=== PATIENT | female | born 1990 | race Caucasian/White ===

== ENCOUNTER 2020-09-01 10:27 | Outpatient (CLI) | payer OTHER, SELFPAY ==
--- NOTE | ~2020-09-01 | US_ITS ---
US abdomen complete DATE: 09/01/2020 11:05 INDICATION: Hepatitis C TECHNIQUE: Real-time imaging and Doppler analysis of the abdomen COMPARISON: None FINDINGS: No hepatic or pancreatic space-occupying mass lesion is evident. Normal hepatopedal portal venous flow direction. No gallstones, gallbladder wall thickening or abnormal pericholecystic fluid. Negative sonographic Mu rphy's sign. The common bile duct measures 5 mm, within normal range. No renal mass lesion or hydronephrosis. The abdominal aorta is of normal caliber. Normal splenic size. IMPRESSION: No significant abnormality Reviewed, dictated and finalized at [facility]. Reviewed, dictated and finalized at [facility]. IMPRESSION: No significant abnormality
== END 2020-09-01 10:28 | disposition home or self-care (01) ==
LOC: ANHIMG 10:29
PROVIDERS: PCP Emergency Medicine; Visit Provider Emergency Medicine
DX: B19.20 Unspecified viral hepatitis C without hepatic coma (principal)
CPT/HCPCS: 76700